=== PATIENT | male | born 1955 | race Caucasian/White ===

== ENCOUNTER 2024-02-26 08:18 | Inpatient (IN) | payer OTHER ==
[~2024-02-26] VITALS: Ht 182.9 cm; Wt 85.0 kg
[2024-02-26 08:45] VITALS: PULSE 70; RESP 16; O2SAT 97
[2024-02-26] MEDS: SODIUM CHLORIDE 0.9% 1,000 ML IV ONE ×2 (08:59→18:54)
[2024-02-26 09:17] LABS: Basophils # (auto) 0 10 ^3/uL (0-0.2); Basophils % (auto) 0.5 % (0.0-2.0); Eosinophils # (auto) 0.3 10 ^3/uL (0-0.8); Eosinophils % (auto) 5.8 % (0.0-7.0); Hematocrit 37.6 % (41.0-53.0); Hemoglobin 12.8 g/dL (13.5-17.5); Lymphocytes # (auto) 1.3 10 ^3/uL (0.4-5.4); Lymphocytes % (auto) 27.1 % (10.0-50.0); Mean Corpuscular Hemoglobin 29.8 pg (28.0-32.0); Mean Corpuscular Hgb Conc. 34.2 g/dL (32.0-36.0); Mean Corpuscular Volume 87.3 fL (80.0-100.0); Monocytes # (auto) 0.3 10 ^3/uL (0-1.3); Monocytes % (auto) 6.8 % (0.0-12.0); Neutrophils % (auto) 59.8 % (37.0-80.0); Platelet Count (auto) 226 10^3/uL (140-450); Red Blood Cells 4.31 10^6/uL (4.5-5.90); Red Cell Distribution Width 13.3 % (11.8-14.3)
[2024-02-26 09:42] LABS: Alanine Aminotransferase 28 U/L (7-40); Albumin 3.8 g/dL (3.2-4.8); Alkaline Phosphatase 79 U/L (46-116); Anion Gap 5 (5-15); Aspartate Aminotransferase 17 U/L (13-40); Blood Urea Nitrogen 13 mg/dL (9-23); Calcium 9.3 mg/dL (8.7-10.4); Carbon Dioxide 24 mmol/L (20-30); Chloride 109 mmol/L (98-107); Glucose 140 mg/dL (74-106); Potassium 3.8 mmol/L (3.5-5.1); Sodium 138 mmol/L (136-145); Total Protein 5.9 g/dL (5.7-8.2)
[2024-02-26] MEDS ORDERED: HYDROcodone-ACET 5/325MG TAB PO PRN (18:30)
[2024-02-26] MEDS ORDERED: ACETAMINOPHEN 325 MG TAB PO PRN (18:30)
[2024-02-26] MEDS ORDERED: ONDANSETRON HCL 4 MG/2 ML VIAL IV PRN (18:30)
[2024-02-26] MEDS ORDERED: HYDROmorphone HCL 2 MG/ML VL/or syr IV PRN (18:30)
[2024-02-26] MEDS ORDERED: DOCUSATE SOD 100 MG CAP PO PRN (18:30)
[2024-02-26 20:00] VITALS: PULSE 62; O2SAT 98
[2024-02-26] MEDS: SODIUM CHLOR 0.9% PF (SALINE LOCK) 10ML VIAL/SYR IV SCH (22:31)
[2024-02-27] VITALS (9 sets, daily range): BP systolic 100–120; BP diastolic 65–74; PULSE 63–110; RESP 16–91; TEMP 97.8–98.3; O2SAT 95–98
[2024-02-27] MEDS ORDERED: ATOR-47 PO (03:59)
[2024-02-27] MEDS ORDERED: ACET300T51 PO (03:59)
[2024-02-27] MEDS ORDERED: AMOX400S53 PO (03:59)
[2024-02-27] MEDS ORDERED: ROSU20TA56 PO (03:59)
[2024-02-27] MEDS ORDERED: NITR0.4S29 (03:59)
[2024-02-27 06:36] LABS: Basophils # (auto) 0.1 10 ^3/uL (0-0.2); Basophils % (auto) 1.3 % (0.0-2.0); Eosinophils # (auto) 0.5 10 ^3/uL (0-0.8); Eosinophils % (auto) 5.9 % (0.0-7.0); Hematocrit 36.6 % (41.0-53.0); Lymphocytes # (auto) 2.2 10 ^3/uL (0.4-5.4); Lymphocytes % (auto) 27.8 % (10.0-50.0); Mean Corpuscular Hemoglobin 30.9 pg (28.0-32.0); Mean Corpuscular Hgb Conc. 35.6 g/dL (32.0-36.0); Mean Corpuscular Volume 86.9 fL (80.0-100.0); Monocytes # (auto) 0.7 10 ^3/uL (0-1.3); Monocytes % (auto) 8.4 % (0.0-12.0); Neutrophils # (auto) 4.4 10 ^3/uL (1.6-8.6); Neutrophils % (auto) 56.6 % (37.0-80.0); Nucleated Red Blood Cells % 0.2 %; Platelet Count (auto) 224 10^3/uL (140-450); Red Blood Cells 4.21 10^6/uL (4.5-5.90); Red Cell Distribution Width 13.3 % (11.8-14.3); White Blood Cell 7.8 10^3/uL (4.4-10.8)
[2024-02-27 07:12] LABS: Alanine Aminotransferase 23 U/L (7-40); Alkaline Phosphatase 78 U/L (46-116); Anion Gap 6 (5-15); Blood Urea Nitrogen 12 mg/dL (9-23); Calcium 9.2 mg/dL (8.7-10.4); Carbon Dioxide 24 mmol/L (20-30); Chloride 109 mmol/L (98-107); Glucose 97 mg/dL (74-106); Magnesium 2.1 mg/dL (1.6-2.6); Potassium 4.1 mmol/L (3.5-5.1); Sodium 139 mmol/L (136-145)
[2024-02-27 07:13] LABS: Albumin 3.8 g/dL (3.2-4.8); Aspartate Aminotransferase 18 U/L (13-40)
[2024-02-27 07:14] LABS: Bilirubin, Total 0.7 mg/dL (0.2-1.0); Total Protein 5.7 g/dL (5.7-8.2)
[2024-02-27] MEDS ORDERED: TAMS1CAP25 PO (08:10)
[2024-02-27] MEDS: ENOXAPARIN SOD 40 MG/0.4 ML SYRINGE SC SCH (10:03)
[2024-02-27 11:16] LABS: Urine Bacteria None Seen /hpf (None Seen)
[2024-02-27 11:34] LABS: Urine Blood Negative /uL (Negative); Urine Clarity Clear (Clear); Urine Color Light-Yellow (Yellow); Urine Protein, UAD Negative (Negative); Urine Specific Gravity 1.011 (1.001-1.035); Urine Urobilinogen Normal (Negative); Urine WBC 1 /hpf (0 - 3)
[2024-02-27 13:00] LABS: LDL Cholesterol 28 mg/dL (< 100); Triglycerides 70 mg/dL (< 150)
[2024-02-27 13:02] LABS: Cholesterol 71 mg/dL (< 200); HDL Cholesterol 30 mg/dL (40-59)
[2024-02-27 15:40] LABS: Amphetamine Screen, Urine Neg (NEGATIVE); Benzodiazephine Screen, Urine Neg (NEGATIVE)
[2024-02-27 15:41] LABS: Barbiturate Scree,Urine Neg (NEGATIVE); Cocaine Screen, Urine Neg (NEGATIVE); Opiate Scree,Urine Neg (NEGATIVE); Phencyclidine Screen, Urine Neg (NEGATIVE)
[2024-02-27 15:42] LABS: Cannabinoid Screen, Urine Neg (NEGATIVE)
[2024-02-27] MEDS: TAMSULOSIN HYDROCHLORIDE 0.4 MG CAP PO SCH (18:04)
[2024-02-27] MEDS: ATORVASTATIN 20 MG TAB PO SCH (22:07)
[2024-02-28 01:00] VITALS: BP 101/65; PULSE 65; RESP 18; TEMP 98.4; O2SAT 96
[2024-02-28 05:00] VITALS: BP 103/66; PULSE 65; RESP 18; TEMP 98.3; O2SAT 96
[2024-02-28 05:50] LABS: Basophils # (auto) 0.1 10 ^3/uL (0-0.2); Basophils % (auto) 1.4 % (0.0-2.0); Eosinophils # (auto) 0.5 10 ^3/uL (0-0.8); Eosinophils % (auto) 7.2 % (0.0-7.0); Hematocrit 36.7 % (41.0-53.0); Hemoglobin 13.2 g/dL (13.5-17.5); Lymphocytes # (auto) 2.4 10 ^3/uL (0.4-5.4); Lymphocytes % (auto) 35.9 % (10.0-50.0); Mean Corpuscular Hgb Conc. 35.9 g/dL (32.0-36.0); Mean Corpuscular Volume 86.4 fL (80.0-100.0); Monocytes # (auto) 0.7 10 ^3/uL (0-1.3); Monocytes % (auto) 10.7 % (0.0-12.0); Neutrophils # (auto) 2.9 10 ^3/uL (1.6-8.6); Neutrophils % (auto) 44.8 % (37.0-80.0); Nucleated Red Blood Cells % 0.1 %; Platelet Count (auto) 228 10^3/uL (140-450); Red Blood Cells 4.25 10^6/uL (4.5-5.90); Red Cell Distribution Width 13.3 % (11.8-14.3); White Blood Cell 6.6 10^3/uL (4.4-10.8)
[2024-02-28 06:02] LABS: Alanine Aminotransferase 23 U/L (7-40); Alkaline Phosphatase 74 U/L (46-116); Anion Gap 5 (5-15); Aspartate Aminotransferase 17 U/L (13-40); BUN/Creatinine Ratio 8.5 (10.0-20.0); Blood Urea Nitrogen 10 mg/dL (9-23); Calcium 9.5 mg/dL (8.7-10.4); Carbon Dioxide 26 mmol/L (20-30); Chloride 108 mmol/L (98-107); Glucose 97 mg/dL (74-106); Potassium 4.3 mmol/L (3.5-5.1); Sodium 139 mmol/L (136-145)
[2024-02-28 06:03] LABS: Albumin 3.8 g/dL (3.2-4.8)
[2024-02-28 06:04] LABS: Bilirubin, Total 0.9 mg/dL (0.2-1.0); Total Protein 5.8 g/dL (5.7-8.2)
[2024-02-28 08:00] VITALS: PULSE 67
[2024-02-28 08:12] VITALS: BP 95/60; PULSE 76; RESP 16; TEMP 98.3; O2SAT 100
[2024-02-28 13:00] VITALS: BP 104/69; PULSE 74; RESP 16; TEMP 98.1; O2SAT 97
== END 2024-02-28 16:00 | disposition home or self-care (01) | DRG 918 ==
LOC: ER 08:18 → TELE 18:28 → TELE-E-ADS 23:38
PROVIDERS: ADMIT Internal Medicine; ATTEND Internal Medicine
DX: T46.3X1A Poisoning by coronary vasodilators, accidental (unintentional), initial encounter (principal); I24.9 Acute ischemic heart disease, unspecified; I95.2 Hypotension due to drugs; N40.0 Benign prostatic hyperplasia without lower urinary tract symptoms; E78.5 Hyperlipidemia, unspecified; Y92.89 Other specified places as the place of occurrence of the external cause
CPT/HCPCS: 36415; 70450; 71045; 80053; 80061; 80307; 81001; 82607; 83036; 83735; 84443; 84484; 85025; 93005; 93306; 93886; 96360; G0378